=== PATIENT | male | born 1990 | race Caucasian/White ===

== ENCOUNTER 2018-02-08 11:18 | Emergency (ER) | payer OTHER | END 2018-02-08 12:35 | disposition home or self-care (01) | LOC: FTE 11:18 | DX: H60.91 Unspecified otitis externa, right ear (principal); J45.909 Unspecified asthma, uncomplicated | CPT/HCPCS: 99283; Z7502 ==

== ENCOUNTER 2018-09-12 07:42 | Emergency (ER) | payer OTHER | END 2018-09-12 08:18 | disposition home or self-care (01) | LOC: FTE 07:42 | DX: H60.93 Unspecified otitis externa, bilateral (principal); J45.909 Unspecified asthma, uncomplicated | CPT/HCPCS: 99283; Z7502 ==

== ENCOUNTER 2018-11-18 08:47 | Emergency (ER) | payer OTHER | END 2018-11-18 09:40 | disposition home or self-care (01) | LOC: FTE 08:47 | DX: L30.9 Dermatitis, unspecified (principal); J45.909 Unspecified asthma, uncomplicated | CPT/HCPCS: 99283; Z7502 ==